=== PATIENT | male | born 1990 | race Caucasian/White ===

== ENCOUNTER 2019-06-07 01:20 | Inpatient (IN) | payer OTHER ==
[~2019-06-07] VITALS: Ht 172.7 cm; Wt 83.7 kg
[2019-06-07] MEDS ORDERED: PERTUSS(ACELL),DIPH,TET VAC/PF 0.5 ML VIAL IM ONE (02:30)
[2019-06-07] MEDS ORDERED: ACETAMINOPHEN 325 MG TABLET PO PRN ×2 (02:30→09:30)
[2019-06-07] MEDS ORDERED: ONDANSETRON HCL 4 MG/2 ML VIAL IVP PRN (02:30)
[2019-06-07] MEDS ORDERED: IBUPROFEN 400 MG TABLET PO ONE (02:30)
[2019-06-07] MEDS ORDERED: ACETAMINOPHEN 500 MG TABLET PO ONE (02:30)
[2019-06-07] MEDS ORDERED: 0.9% SODIUM CHLORIDE 10 ML SYRINGE IVP PRN (02:30)
[2019-06-07 03:27] LABS: BASOPHILS % (AUTO) 0.4 % (0.0-2.0); EOSINOPHILS % (AUTO) 2.7 % (1.0-6.0); HEMATOCRIT 41.7 % (41-53); HEMOGLOBIN 14.5 g/dL (13.5-17.5); LYMPHOCYTES # (AUTO) 2.4 K/uL (1.0-4.8); LYMPHOCYTES % (AUTO) 31.9 % (22.0-44.0); MEAN CORPUSCULAR HEMOGLOBIN 33.4 pg (26.0-34.0); MEAN CORPUSCULAR HGB CONC 34.7 G/dL (31.0-37.0); MEAN CORPUSCULAR VOLUME 96 fL (80-100); MONOCYTES # (AUTO) 0.7 K/uL (0.1-1.0); MONOCYTES % (AUTO) 8.7 % (2.0-9.0); NEUTROPHILS # (AUTO) 4.3 K/uL (1.8-7.7); NEUTROPHILS % (AUTO) 56.3 % (40.0-70.0); PLATELET COUNT (AUTO) 295 K/uL (150-450); RED BLOOD CELL COUNT(AUTO) 4.33 MIL/uL (4.50-5.90); RED CELL DISTRIBUTION WIDTH 12.8 % (11.5-14.5)
[2019-06-07 03:43] LABS: ANION GAP 10 mmol/L (8-16); CARBON DIOXIDE 27 mmol/L (22-29); CHLORIDE 99 mmol/L (98-107); CREATININE 1.09 mg/dL (0.60-1.30); GLOMERULAR FILTR. RATE CALC > 60 mL/min (>60); GLUCOSE,RANDOM 128 mg/dL (70-110); POTASSIUM 3.8 mmol/L (3.5-5.1); SODIUM SERUM 136 mmol/L (136-145); UREA NITROGEN, BLOOD 15 mg/dL (7-18)
[2019-06-07 03:51] LABS: ALANINE AMINOTRANSFERASE 42 U/L (12-78); ALBUMIN 3.6 g/dL (3.4-5.0); ALKALINE PHOSPHATASE 86 U/L (46-116); ASPARTATE AMINOTRANSFERASE 55 U/L (15-37); BILIRUBIN,TOTAL 0.7 mg/dL (0.1-1.0); TOTAL PROTEIN, SERUM 7.3 g/dL (6.4-8.2)
[2019-06-07 04:32] VITALS: BP 127/87
[2019-06-07] MEDS ORDERED: ACETAMINOPHEN 325 MG TABLET ONE (08:22)
[2019-06-07 08:44] VITALS: BP 136/90
[2019-06-07] MEDS ORDERED: MAGNESIUM HYDROXIDE SUSPENSION 30 ML UDCUP PO PRN (09:30)
[2019-06-07] MEDS ORDERED: TraMADol HCL 50 MG TABLET PO PRN (09:30)
[2019-06-07] MEDS: CLOTRIMAZOLE 1% 10 ML SOLUTION TP SCH ×2 (09:30→21:00)
[2019-06-07 11:28] VITALS: BP 131/73
[2019-06-07] MEDS: NICOTINE 14 MG/24 HOUR PATCH TD SCH (11:39)
[2019-06-07 16:00] VITALS: BP 147/80
[2019-06-07 19:51] VITALS: BP 122/74
[2019-06-08 00:13] VITALS: BP 125/81
[2019-06-08 05:10] VITALS: BP 119/81
[2019-06-08 07:48] VITALS: BP 139/82
[2019-06-08] MEDS: CLOTRIMAZOLE 1% 10 ML SOLUTION TP SCH ×2 (08:13→08:15)
[2019-06-08] MEDS: NICOTINE 14 MG/24 HOUR PATCH TD SCH (08:13)
[2019-06-08] MEDS ORDERED: NICO-703 TD (10:11)
[2019-06-08] MEDS ORDERED: MICO150A TP (10:11)
[2019-06-08] MEDS ORDERED: MOM30 PO (10:12)
[2019-06-08] MEDS ORDERED: ACET-2247 PO (10:12)
[2019-06-08 12:36] VITALS: BP 146/68
[2019-06-08 13:16] VITALS: BP 136/67
== END 2019-06-08 13:00 | DRG 897 ==
LOC: EMS 01:23 → 6S 04:34
PROVIDERS: ADMIT Internal Medicine; ATTEND Internal Medicine
PROC: 3E0234Z Introduction of Serum, Toxoid and Vaccine into Muscle, Percutaneous Approach (ICD-10-PCS; principal; 2019-06-07)
DX: F11.23 Opioid dependence with withdrawal (principal); B35.3 Tinea pedis; F17.210 Nicotine dependence, cigarettes, uncomplicated; Z23 Encounter for immunization; Z71.6 Tobacco abuse counseling
CPT/HCPCS: 90471; 90715